=== PATIENT | female | born 1960 | race Caucasian/White ===

== ENCOUNTER 2017-11-14 18:31 | Emergency (ER) | payer BC ==
[2017-11-14] MEDS: IBUPROFEN 800 MG TAB PO (19:08)
== END 2017-11-14 20:40 | disposition home or self-care (01) ==
LOC: FTE 18:31
DX: S89.92XA Unspecified injury of left lower leg, initial encounter (principal); S39.92XA Unspecified injury of lower back, initial encounter; S39.91XA Unspecified injury of abdomen, initial encounter; S80.211A Abrasion, right knee, initial encounter; W01.0XXA Fall on same level from slipping, tripping and stumbling without subsequent striking against object, initial encounter; Y92.009 Unspecified place in unspecified non-institutional (private) residence as the place of occurrence of the external cause; Z87.891 Personal history of nicotine dependence
CPT/HCPCS: 29505; 72100; 72170; 73562-50; 99284-25